=== PATIENT | female | born 1985 | race Caucasian/White ===

== ENCOUNTER → 2018-11-30 | Outpatient (CLI) | payer BC, OTHER ==
[2018-11-30 14:29] VITALS: BMI 26.2
== END | disposition home or self-care (01) ==
LOC: DBWHC3 13:00
PROVIDERS: ATTEND Physician Assistant
DX: R63.5 Abnormal weight gain (principal)
CPT/HCPCS: 97802

== ENCOUNTER → 2019-02-04 | Outpatient (CLI) | payer BC, OTHER ==
[2019-02-04 17:43] LABS: Thyroid Peroxidase Antibodies <28.0 U/mL (0.0-60.0)
== END | disposition home or self-care (01) ==
LOC: LABWHC1 08:29
PROVIDERS: ATTEND Internal Medicine Endocrinology, Diabetes & Metabolism
DX: R53.83 Other fatigue (principal)
CPT/HCPCS: 36415; 82024; 82533; 82607; 84439; 84443; 84480; 86376